=== PATIENT | female | born 1975 | race Two or more races ===

== ENCOUNTER 2024-09-26 12:30 | Day surgery (SDC) | payer MEDICAID, SELFPAY ==
[2024-09-25 10:46] LABS: HCG Qualitative,Urine Negative
[2024-09-25 14:32] VITALS: BMI 33.6
[2024-09-26] VITALS (9 sets, daily range): BP systolic 115–155; BP diastolic 70–101; PULSE 61–73; RESP 14–18; TEMP 36.1–36.8; O2SAT 95–99; BMI 33.4
[2024-09-26] MEDS: fentaNYL CIT INJ 50 mCg/ML AMP 2ML (ASD USE ONLY) IV (13:55)
[2024-09-26] MEDS: RINGERS LACTATED 1000 ML 1,000 ML 125 ML IV (13:55)
[2024-09-26] MEDS: MIDAZOLAM INJ 1 MG/ML VIAL 2 ML (ASD USE ONLY) 2 MG IV (13:57)
[2024-09-26] MEDS: DiphenhydrAMINE INJ 50 MG/ML VIAL 25 MG IV (14:05)
--- NOTE | 2024-09-26 15:20 | SUR.PHASEII ---
1419: Pt received for recovery. Report from Marya CAMARENA. Pt sleepy. Easily aroused. Resp even, unlabored. VS stable. Denies pain. 1450: Pt more awake, alert. VS stable. Denies pain. Sitting up tolerating po fluids with no difficulty swallowing and no n/v. 1505: Pt fully awake, oriented x3. Pt assisted to restroom. Ambulation steady. Pt and stated understanding of discharge instructions. Pt discharged from [facility] in stable condition.
== END 2024-09-26 15:05 | disposition home or self-care (01) ==
PROVIDERS: PCP Family Medicine; Referring Provider Surgery; Visit Provider Surgery
PROC: 0DBE8ZX Excision of Large Intestine, Via Natural or Artificial Opening Endoscopic, Diagnostic (ICD-10-PCS; CPT 45380; principal; 2024-09-26 13:45)
DX: Z12.11 Encounter for screening for malignant neoplasm of colon (principal)
CPT/HCPCS: 45378; 81025; J1200; J2250; J3010; J7120

== ENCOUNTER → 2025-03-06 | Outpatient (CLI) | payer MEDICAID, SELFPAY ==
--- NOTE | 2025-03-06 11:00 | XR_ITS ---
EXAMINATION: Right breast sonography complete TECHNIQUE: Grayscale sonographic images right breast including retroareolar and axillary region Date and time: March 08, 2025, 11:40 a.m. INDICATIONS: Family history breast cancer, mammogram December 25, 2024 asymmetry medial right breast FINDINGS: 9:00 cyst 4 x 8 mm 9:00 cyst 6 x 7 mm No solid nodules IMPRESSION: BI-RADS Category 2: Benign findings
--- NOTE | 2025-03-06 11:30 | XR_ITS ---
Examination: Diagnostic digital mammography, unilateral, right Computer aided detection 3-D breast Tomosynthesis, unilateral Date and time of exam:. 03/04/2025, 11:41 a.m. Comparisons: March 2016, December 2024 Indications: Breast further evaluation of abnormality seen on screening exam Technique: Nonmagnified MLO, CC views of the right breast have been obtained, reconstructed from 3-D Tomosynthesis images. R2 computer aided detection program utilized for evaluation of suspicious masses and/or abnormal calcifications. 3-D Tomosynthesis images obtained. Technologist: Findings: The breasts are extremely dense, which lowers the sensitivity of mammography. Persistent focal asymmetry persists in the medial breast on spot compression views. Scattered benign-appearing calcifications. No other focal abnormality seen. Impression: Persistent focal asymmetry medial breast as described above. Recommend repeat ultrasound evaluation at this area with radiologist in attendance. BI-RADS category 0: Incomplete assessment; need additional imaging evaluation
== END | disposition home or self-care (01) ==
LOC: CDIM 11:13
PROVIDERS: Referring Provider Obstetrics & Gynecology; Visit Provider Obstetrics & Gynecology
DX: R92.8 Other abnormal and inconclusive findings on diagnostic imaging of breast (principal); Z85.3 Personal history of malignant neoplasm of breast
CPT/HCPCS: 76641; 77061; 77065; G0279